=== PATIENT | male | born 1985 | race Caucasian/White ===

== ENCOUNTER 2017-07-08 22:40 | Emergency (ER) | payer OTHER ==
[~2017-07-08] VITALS: Ht 188 cm; Wt 105.1 kg
[2017-07-08 22:41] VITALS: BP 130/81
[2017-07-08] MEDS ORDERED: ANTI-DEPRESSANT (22:54)
[2017-07-08] MEDS ORDERED: ALPR0.25 PO (22:54)
== END 2017-07-09 02:30 | disposition home or self-care (01) ==
LOC: ED 23:59
DX: S39.012A Strain of muscle, fascia and tendon of lower back, initial encounter (principal); M54.16 Radiculopathy, lumbar region; M54.32 Sciatica, left side; M41.9 Scoliosis, unspecified; F17.210 Nicotine dependence, cigarettes, uncomplicated; G80.9 Cerebral palsy, unspecified; X58.XXXA Exposure to other specified factors, initial encounter; Y93.89 Activity, other specified; Y92.89 Other specified places as the place of occurrence of the external cause; Y99.8 Other external cause status
CPT/HCPCS: 72110; 99284